=== PATIENT | female | born 1995 | race American Indian/Alaskan Native ===

== ENCOUNTER 2016-10-13 18:16 | Emergency (ER) | payer SELFPAY ==
[2016-10-13 18:59] VITALS: BP 126/71
--- NOTE | 2016-10-13 19:14 | Emergency Department Report ---
Chief Complaint: Abdominal Pain Stated Complaint: BLEEDING/BACK PAIN Time Seen by Provider: 10/13/16 19:11 - HPI History of Present Illness: 21 y/o complain of abd pain with nausea x 1 day .pt state LMP 09/25/2016.pt denies any prior medication . - ROS Review of Systems: per HPI - Exam Vital Signs: Vital Signs 10/13/16 18:54 Temperature 98.0 F Pulse Rate 87 Respiratory 16 Rate Blood Pressure 126/71 O2 Sat by Pulse 100 Oximetry Physical Exam: GENERAL: The patient is well-developed and well-nourished. Patient is in NAD. HENT: Normocephalic. Atraumatic. Patient has moist mucous membranes. Throat: No erythema, swelling or exudates. EYES: Extraocular motions are intact, PERRL NECK: Supple. No meningitic signs are noted. There is no adenopathy noted. CHEST/LUNGS: Clear to auscultation bilaterally. No wheezing, rales or rhonchi noted. There is no respiratory distress noted. HEART/CARDIOVASCULAR: Regular rate and rhythm. Normal S1 S2. No murmurs, rubs , clicks, or gallops. ABDOMEN: Abdomen is soft, nontender.. Bowel sounds normoactive. There is no abdominal distention. Negative rebound tenderness. Negative Rovsing. : Deferred. SKIN: There is no rash. There is no edema. There is no diaphoresis. NEURO: The patient is A&Ox3. The patient has no focal neurologic deficits. MUSCULOSKELETAL: There is no tenderness or deformity. There is no limitation range of motion. PSYCH: Pt has appropriate mood and affect. ` MSE screening note: Focused history and physical exam performed. Due to findings the following was ordered: ED Disposition for MSE Condition: Stable Instructions: Abdominal Pain (ED)
[2016-10-13 19:44] LABS: Basophils % (Auto) 0.8 % (0.0-1.8); Hematocrit 38.9 % (30.3-42.9); Mean Corpuscular HGB Conc 34 % (30-34); Mean Corpuscular Hemoglobin 31 pg (28-32); Mean Corpuscular Volume 93 fl (79-97); Platelet Count 208 K/mm3 (140-440); Red Blood Count 4.18 M/mm3 (3.65-5.03); Red Cell Distribution Width 13.2 % (13.2-15.2); White Blood Count 8.1 K/mm3 (4.5-11.0)
[2016-10-13 20:07] LABS: Bilirubin,Urine NEG (Negative); Blood,Urine LG (Negative); Ketones,Urine NEG (Negative); Leukocyte Esterase,Urine TR (Negative); Mucus,Urine 1+ /HPF; Nitrite,Urine NEG (Negative); RBC,Urine > 182.0 /HPF (0.0-6.0); Urobilinogen,Urine < 2.0 mg/dL (<2.0)
[2016-10-13 20:24] LABS: BUN/Creatinine Ratio 22.85; Blood Urea Nitrogen 16 mg/dL (7-17); Calcium 9.2 mg/dL (8.4-10.2); Carbon Dioxide 25 mmol/L (22-30); Chloride 102.9 mmol/L (98-107); Glucose 79 mg/dL (65-100); Potassium 4.1 mmol/L (3.6-5.0); Sodium 141 mmol/L (137-145)
[2016-10-13 20:45] LABS: Anion Gap 17 mmol/L
--- NOTE | 2016-10-15 05:02 | ED Elopement Review ---
ED Pt Elopement review - Results review Lab results: Laboratory Tests 10/13/16 10/13/16 10/13/16 19:30 19:30 19:30 WBC 8.1 RBC 4.18 Hgb 13.0 Hct 38.9 MCV 93 MCH 31 MCHC 34 RDW 13.2 Plt Count 208 Lymph % (Auto) 38.0 H [place] % (Auto) 7.0 Eos % (Auto) 1.0 Baso % (Auto) 0.8 Lymph # 3.1 [place] # 0.6 Eos # 0.1 Baso # 0.1 Seg Neutrophils % 53.2 Seg Neutrophils # 4.3 Sodium 141 Potassium 4.1 Chloride 102.9 Carbon Dioxide 25 Anion Gap 17 BUN 16 Creatinine 0.7 Estimated GFR > 60 BUN/Creatinine Ratio 22.85 Glucose 79 Calcium 9.2 HCG, Quant < 2 Urine Color Urine Turbidity Urine pH Ur Specific [place] Urine Protein Urine Glucose (UA) Urine Ketones Urine Blood Urine Nitrite Urine Bilirubin Urine Urobilinogen Ur Leukocyte Esterase Urine WBC (Auto) Urine RBC (Auto) Urine Mucus 10/13/16 19:37 WBC RBC Hgb Hct MCV MCH MCHC RDW Plt Count Lymph % (Auto) [place] % (Auto) Eos % (Auto) Baso % (Auto) Lymph # [place] # Eos # Baso # Seg Neutrophils % Seg Neutrophils # Sodium Potassium Chloride Carbon Dioxide Anion Gap BUN Creatinine Estimated GFR BUN/Creatinine Ratio Glucose Calcium HCG, Quant Urine Color [place] Urine Turbidity Turbid Urine pH 7.0 Ur Specific [place] 1.026 Urine Protein 100 mg/dl Urine Glucose (UA) Neg Urine Ketones Neg Urine Blood Lg Urine Nitrite Neg Urine Bilirubin Neg Urine Urobilinogen < 2.0 Ur Leukocyte Esterase Tr Urine WBC (Auto) 10.0 H Urine RBC (Auto) > 182.0 Urine Mucus 1+ - Call Back decision Pt Call Back Decision: No action required
== END 2016-10-14 05:25 | disposition left against medical advice (07) ==
LOC: ED 18:16
DX: R10.9 Unspecified abdominal pain (principal); R11.0 Nausea; Z53.21 Procedure and treatment not carried out due to patient leaving prior to being seen by health care provider
CPT/HCPCS: 36415; 80048; 81001; 84702; 85025